=== PATIENT | male | born 1990 | race Caucasian/White ===

== ENCOUNTER → 2020-03-01 11:05 | Outpatient (BNVA) | payer OTHER, SELFPAY | PROVIDERS: Visit Provider Nurse Practitioner Family | DX: Z11.59 Encounter for screening for other viral diseases (principal); Z20.828 Contact with and (suspected) exposure to other viral communicable diseases; J06.9 Acute upper respiratory infection, unspecified | CPT/HCPCS: 87635 ==

== ENCOUNTER 2020-06-18 17:45 | Emergency (ER) | payer OTHER, SELFPAY ==
[2020-06-18 18:11] VITALS: BP 122/82; PULSE 68; RESP 14; TEMP 36.2; O2SAT 99; BMI 24.7
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
[2020-06-18 18:39] VITALS: RESP 18
[2020-06-18] MEDS: naproxen 500 mg Tablet PO (18:53)
[2020-06-18 19:41] VITALS: BP 128/76; PULSE 65; RESP 18; O2SAT 99
== END 2020-06-18 19:41 | disposition home or self-care (01) ==
PROVIDERS: Emergency Provider Emergency Medicine
DX: S13.4XXA Sprain of ligaments of cervical spine, initial encounter (principal); V89.2XXA Person injured in unspecified motor-vehicle accident, traffic, initial encounter
CPT/HCPCS: 12345; 70450; 71046; 72125; 73110; 99281; 99283

== ENCOUNTER → 2022-06-17 15:02 | Outpatient (BNVA) | payer SELFPAY | PROVIDERS: Visit Provider Registered Nurse Neonatal Intensive Care | DX: M25.571 Pain in right ankle and joints of right foot (principal) | CPT/HCPCS: 73610 ==

== ENCOUNTER → 2023-01-18 12:55 | Outpatient (BNVA) | payer SELFPAY | PROVIDERS: Visit Provider Nurse Practitioner Family | DX: M25.571 Pain in right ankle and joints of right foot (principal) | CPT/HCPCS: 73610 ==